=== PATIENT | male | born 1985 | race Caucasian/White ===

== ENCOUNTER 2019-02-13 17:22 | Emergency (ER) | payer OTHER ==
[~2019-02-13] VITALS: Ht 172.7 cm; Wt 92.1 kg
[2019-02-13] MEDS ORDERED: NORCO 5-325 TA1 EACH PO (19:21)
[2019-02-13] MEDS ORDERED: CLEOCIN HCL150 MG PO (19:21)
[2019-02-13] MEDS ORDERED: IBUPROFEN 800800 M1 PO (19:21)
[2019-02-13 22:00] VITALS: BP 124/70
== END 2019-02-13 22:00 | disposition home or self-care (01) ==
LOC: M.ERS 17:22
DX: S02.401B Maxillary fracture, unspecified side, initial encounter for open fracture (principal); S02.2XXA Fracture of nasal bones, initial encounter for closed fracture; S01.21XA Laceration without foreign body of nose, initial encounter; X50.9XXA Other and unspecified overexertion or strenuous movements or postures, initial encounter; Y93.61 Activity, american tackle football; Y92.89 Other specified places as the place of occurrence of the external cause; Y99.8 Other external cause status